=== PATIENT | male | born 1965 | race Caucasian/White ===

== ENCOUNTER 2017-06-25 19:05 | Inpatient (IN) | payer OTHER ==
[2017-06-25] MEDS: KETOROLAC 30 MG/ML INJ. IV ×2 (19:30)
[2017-06-25] MEDS: IV NORMAL SALINE 1000ML BAG 1,000 ML IV ×2 (19:30)
[2017-06-25 19:42] LABS: ADD MAN DIFF? NO
[2017-06-25 19:45] LABS: BASO # 0.1 x10^3/uL (0.0-0.2); BASO % 1 % (0-3); EOS # 0.2 x10^3/uL (0.0-0.7); EOS % 3 % (0-3); HEMATOCRIT 45.2 % (39.0-53.0); HEMOGLOBIN 15.7 g/dL (13.0-17.5); LYMPH # 2.1 x10^3/uL (1.0-4.8); LYMPH % 29 % (24-48); MEAN CORPUSCULAR HEMOGLOBIN 31 pg (25-35); MEAN CORPUSCULAR HGB CONC 35 g/dL (31-37); MEAN CORPUSCULAR VOLUME 90 fL (79-100); MONO # 0.3 x10^3/uL (0.0-1.1); MONO % 5 % (0-9); NEUT # 4.4 x10^3uL (1.8-7.7); NEUT % 62 % (31-73); PLATELET COUNT 183 x10^3/uL (140-400); RED CELL DISTRIBUTION WIDTH 13.1 % (11.5-14.5); WHITE BLOOD COUNT 7.1 x10^3/uL (4.0-11.0)
[2017-06-25] MEDS: fentaNYL PF VIAL 100 MCG/2 ML VIAL IV ×2 (19:49)
[2017-06-25] MEDS: ONDANSETRON PF 4 MG/2 ML VIAL. IV ×2 (19:50)
[2017-06-25 20:33] LABS: ANION GAP 10 (6-14); BLOOD UREA NITROGEN 30 mg/dL (8-26); BUN/CREATININE RATIO 27 (6-20); CALCIUM 8.5 mg/dL (8.5-10.1); CARBON DIOXIDE 23 mmol/L (21-32); CHLORIDE 101 mmol/L (98-107); CREATININE 1.1 mg/dL (0.7-1.3); GLUCOSE 150 mg/dL (70-99); POTASSIUM 3.8 mmol/L (3.5-5.1); SODIUM 134 mmol/L (136-145)
[2017-06-25 20:39] LABS: ALBUMIN 3.6 g/dL (3.4-5.0); ALBUMIN/GLOBULIN RATIO 1.1 (1.0-1.7); ALK PHOS 80 U/L (46-116); ALT (SGPT) 30 U/L (16-63); AST (SGOT) 24 U/L (15-37); MAGNESIUM 1.6 mg/dL (1.8-2.4); TOTAL BILIRUBIN 0.4 mg/dL (0.2-1.0); TOTAL PROTEIN 6.9 g/dL (6.4-8.2)
[2017-06-25 20:41] LABS: TROPONINI < 0.017 ng/mL (0.000-0.055)
[2017-06-25 20:47] LABS: NT-PRO BNP < 5 pg/mL (0-124)
[2017-06-25] MEDS: MAGNESIUM SULFATE 2GM 50 ML IV ×2 (22:22)
[2017-06-25 23:08] LABS: TROPONINI < 0.017 ng/mL (0.000-0.055)
[2017-06-26 04:28] LABS: ADD MAN DIFF? NO
[2017-06-26 04:43] LABS: BASO # 0.1 x10^3/uL (0.0-0.2); BASO % 1 % (0-3); EOS # 0.2 x10^3/uL (0.0-0.7); EOS % 3 % (0-3); HEMATOCRIT 43.9 % (39.0-53.0); HEMOGLOBIN 15.3 g/dL (13.0-17.5); LYMPH # 1.9 x10^3/uL (1.0-4.8); LYMPH % 25 % (24-48); MEAN CORPUSCULAR HEMOGLOBIN 32 pg (25-35); MEAN CORPUSCULAR HGB CONC 35 g/dL (31-37); MEAN CORPUSCULAR VOLUME 91 fL (79-100); MONO # 0.6 x10^3/uL (0.0-1.1); MONO % 8 % (0-9); NEUT # 4.8 x10^3uL (1.8-7.7); NEUT % 63 % (31-73); PLATELET COUNT 180 x10^3/uL (140-400); RED BLOOD COUNT 4.85 x10^6/uL (4.30-5.70); WHITE BLOOD COUNT 7.6 x10^3/uL (4.0-11.0)
[2017-06-26 05:00] LABS: ANION GAP 10 (6-14); BLOOD UREA NITROGEN 25 mg/dL (8-26); CALCIUM 8.6 mg/dL (8.5-10.1); CARBON DIOXIDE 25 mmol/L (21-32); CHLORIDE 104 mmol/L (98-107); CREATININE 1.1 mg/dL (0.7-1.3); GLUCOSE 107 mg/dL (70-99); POTASSIUM 4.1 mmol/L (3.5-5.1); SODIUM 139 mmol/L (136-145)
[2017-06-26 08:25] LABS: TROPONINI < 0.017 ng/mL (0.000-0.055)
[2017-06-26 09:47] LABS: CHOLESTEROL 211 mg/dL (0-200); HDLC 45 mg/dL (40-60); LDLC 136 mg/dL (0-100); NON-HDL CHOLESTEROL 166 mg/dL (0-129); TRIGLYCERIDES 148 mg/dL (0-150); VLDLC 30 mg/dL (0-40)
[2017-06-26 09:50] LABS: CHOLESTEROL/HDL RATIO 4.7
[2017-06-26] MEDS: ASPIRIN ENTERIC COATED 81 MG TABLET.DR. PO ×2 (16:00)
[2017-06-26] MEDS: ATORVASTATIN CALCIUM 20 MG TABLET PO ×2 (21:41)
[2017-06-27] MEDS: ASPIRIN ENTERIC COATED 81 MG TABLET.DR. PO ×2 (08:00)
[2017-06-27] MEDS: diazePAM 5 MG TABLET PO ×2 (08:15)
== END 2017-06-27 14:30 | disposition home or self-care (01) | DRG 68 ==
LOC: ER 19:05 → 5 NORTH 19:26
DX: I65.29 Occlusion and stenosis of unspecified carotid artery (principal); E83.42 Hypomagnesemia; R55 Syncope and collapse; I10 Essential (primary) hypertension; M19.042 Primary osteoarthritis, left hand; M19.041 Primary osteoarthritis, right hand; E78.5 Hyperlipidemia, unspecified; F40.240 Claustrophobia; T78.1XXA Other adverse food reactions, not elsewhere classified, initial encounter; X58.XXXA Exposure to other specified factors, initial encounter; E66.9 Obesity, unspecified; Z79.82 Long term (current) use of aspirin; Z79.899 Other long term (current) drug therapy; Z68.33 Body mass index [BMI] 33.0-33.9, adult
CPT/HCPCS: 36415; 71045; 80048; 80053; 80061; 83735; 83880; 84484; 85025; 93005; 93306; 93880; 96360; 96361; 99285-25; J3475; J7030

== ENCOUNTER → 2020-11-24 | Outpatient (CLI) | payer OTHER ==
[2017-06-27 10:51] VITALS: BP 115/73
[~2020-11-24] MED LIST: ALFU10TA4 PO; ASPI-482 PO; LISI-130 PO
--- NOTE | 2020-11-24 15:40 | KCIC ---
STUDY: MRI of the right knee without contrast INDICATION: Chronic right knee pain. COMPARISON: None. TECHNIQUE: Multiplanar MR imaging of the right knee performed without the use of intravenous or intra -articular contrast. FINDINGS: Menisci: Complex tearing/maceration of the medial meniscus body segment with less pronounced tearing extending to involve the anterior and posterior horns. The medial meniscal body is extruded from the joint line. No discrete tear of the lateral meniscus. No discrete tear of the lateral meniscus with o nly mild degenerative heterogeneity. Cruciate ligaments: Intact. Collateral ligaments: Intact. Tendons: No tear or advanced tendinosis. Cartilage: Patellofemoral: High-grade, borderline full-thickness chondrosis involving portions of the patella to a greater extent than the trochlea. Lateral compartment: Scattered partial thickness chondrosis. Medial compartment: High-grade and full-thickness chondral loss involving a large portion of the weig htbearing aspect of the compartment and extending to involve the nonweightbearing medial femoral cond yle. Collectively there is more pronounced involvement of the femoral condyle than tibial plateau. Bones: Tricompartmental osteophyte formation largest at the medial joint line. Degenerative subchondr al edema/cystic change along the periphery of the medial tibial plateau. Miscellaneous: Small Gleason's cyst. Small amount of knee joint fluid with a few particulate loose bodi es. IMPRESSION: 1. Macerated medial meniscal body with extrusion from the joint line. Less pronounced tearing extend ing into the anterior and posterior horns. No full-thickness tear of the lateral meniscus. The crucia te and collateral ligaments are intact. 2. 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 3. Small Gleason's cyst. Small volume knee joint fluid with a few particulate loose bodies. Electronically signed by: DAWOOD SNYDER MD (11/24/2020 3:37 PM) [id number]
== END ==
LOC: KCIC MRI 12:50
PROVIDERS: ATTEND Family Medicine Sports Medicine
DX: S83.241A Other tear of medial meniscus, current injury, right knee, initial encounter (principal); M17.11 Unilateral primary osteoarthritis, right knee; M25.761 Osteophyte, right knee; M71.21 Synovial cyst of popliteal space [Baker], right knee; M23.41 Loose body in knee, right knee; M25.861 Other specified joint disorders, right knee; X58.XXXA Exposure to other specified factors, initial encounter; Y93.89 Activity, other specified; Y92.89 Other specified places as the place of occurrence of the external cause; Y99.8 Other external cause status
CPT/HCPCS: 73721